=== PATIENT | female | born 1980 | race Caucasian/White ===

== ENCOUNTER 2020-06-19 15:34 | Outpatient (CLI) | payer OTHER, SELFPAY ==
--- NOTE | ~2020-06-19 | MM_ITS ---
EXAMINATION: MM screening cher BI w angelica HISTORY: Screening mammogram TECHNIQUE: Craniocaudal and mediolateral oblique 3-D tomosynthesis images were obtained and synthetic 2-D images were generated. CAD analysis was submitted and interpreted. COMPARISON: 04/17/2019 bilateral digital screening mammogram 03/29/2018 diagnostic left digital mammogram and limited left breast ultrasound 03/22/2018 bilateral digital screening mammogram BREAST PARENCHYMAL COMPOSITION: There are scattered areas of fibroglandular density. FINDINGS: There is no evidence of suspicious mass, calcification, or architectural distortion to sugg est malignancy in either breast. There has been no suspicious interval change. IMPRESSION: 1. No mammographic evidence of malignancy. 2. Recommend routine screening mammography in one year. BI-RADS Category 1: Negative Reviewed, dictated and finalized at location A. OL BUS OPERATOR
== END 2020-06-19 15:35 | disposition home or self-care (01) ==
LOC: ANHIMG 15:36
PROVIDERS: PCP Family Medicine Sports Medicine; Visit Provider Obstetrics & Gynecology
DX: Z12.31 Encounter for screening mammogram for malignant neoplasm of breast (principal)
CPT/HCPCS: 77063; 77067

== ENCOUNTER 2021-10-22 10:06 | Outpatient (CLI) | payer BC, SELFPAY ==
--- NOTE | ~2021-10-22 | MM_ITS ---
EXAMINATION: MM screening cher BI w angelica HISTORY: Screening mammogram TECHNIQUE: Craniocaudal and mediolateral oblique 3-D tomosynthesis images were obtained and synthetic 2-D images were generated. CAD analysis was submitted and interpreted. COMPARISON: 06/19/2020, 04/07/2019 bilateral screening mammogram examinations BREAST PARENCHYMAL COMPOSITION: There are scattered areas of fibroglandular density. FINDINGS: There is no evidence of suspicious mass, calcification, or architectural distortion to sugg est malignancy in either breast. There has been no suspicious interval change. IMPRESSION: 1. No mammographic evidence of malignancy. 2. Recommend routine screening mammography in one year. BI-RADS Category 1: Negative Reviewed, dictated and finalized at location A.
== END 2021-10-22 10:07 | disposition home or self-care (01) ==
PROVIDERS: PCP Family Medicine Sports Medicine; Visit Provider Obstetrics & Gynecology
DX: Z12.31 Encounter for screening mammogram for malignant neoplasm of breast (principal)
CPT/HCPCS: 77063; 77067

== ENCOUNTER 2023-03-31 08:12 | Outpatient (CLI) | payer BC, SELFPAY ==
--- NOTE | ~2023-03-31 | MM_ITS ---
EXAMINATION: MM screening [facility] BI w angelica HISTORY: Screening mammogram TECHNIQUE: Craniocaudal and mediolateral oblique 3-D tomosynthesis images were obtained and synthetic 2-D images were generated. CAD analysis was submitted and interpreted. COMPARISON: 10/22/2021, 06/19/2020, 04/07/2019 BREAST PARENCHYMAL COMPOSITION: There are scattered areas of fibroglandular density. FINDINGS: No suspicious mass, calcification, or architectural distortion are identified in either avi ast to suggest malignancy. There has been no suspicious interval change. IMPRESSION: 1. No mammographic evidence of malignancy. 2. Recommend routine screening mammography in one year. BI-RADS Category 1: Negative Reviewed, dictated and finalized at location A.
== END 2023-03-31 08:13 | disposition home or self-care (01) ==
LOC: CHSIMG 08:14
PROVIDERS: PCP Family Medicine; Visit Provider Obstetrics & Gynecology
DX: Z12.31 Encounter for screening mammogram for malignant neoplasm of breast (principal)
CPT/HCPCS: 77063; 77067

== ENCOUNTER 2023-04-06 12:33 | Outpatient (CLI) | payer BC, SELFPAY ==
--- NOTE | ~2023-04-06 | MR_ITS ---
MRI of the right knee Clinical history: Medial meniscal tear Technique: Coronal proton density and proton density-weighted images, sagittal proton-density and T2 fat-sat images, and axial proton-density fat-saturated images were acquired. Findings: Anterior and posterior cruciate ligaments are intact. Medial collateral ligament and the la teral collateral ligament complex are intact. Popliteus tendon is intact. No medial or lateral meniscal tear identified. There is moderate chondral thinning diffusely involving the medial femoral condyle. Lateral compartme nt articular cartilage is well preserved. 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 Femoral trochlear cartilage is intact. There are small patellofemoral compartment and media l and lateral joint line osteophytes. Extensor mechanism is intact. Minimal joint effusion present. Moderate Montano's cyst present. Impression: Moderate degenerative change of the medial and patellofemoral compartments, as detailed above. Mild d egenerative change of the lateral compartment. Moderate Montano's cyst. No ligamentous injury or meniscal tear seen. Reviewed, dictated and finalized at location M. ATION DEAN Impression: Moderate degenerative change of the medial and patellofemoral compartments, as detailed above. Mild degenerative change of the lateral compartment. Moderate Montano's cyst. No ligamentous injury or meniscal tear seen.
== END 2023-04-06 12:34 ==
PROVIDERS: PCP Family Medicine; Visit Provider Physician Assistant
DX: S83.221A Peripheral tear of medial meniscus, current injury, right knee, initial encounter (principal); X58.XXXA Exposure to other specified factors, initial encounter; M71.21 Synovial cyst of popliteal space [Baker], right knee
CPT/HCPCS: 73721

== ENCOUNTER 2024-04-01 10:11 | Outpatient (CLI) | payer BC, SELFPAY ==
--- NOTE | ~2024-04-01 | MM_ITS ---
EXAMINATION: MM screening [facility] BI w angelica HISTORY: Screening mammogram TECHNIQUE: Craniocaudal and mediolateral oblique 3-D tomosynthesis images were obtained and synthetic 2-D images were generated. CAD analysis was submitted and interpreted. COMPARISON: 03/31/2023, 10/22/2021, 06/19/2020, 04/07/2019 BREAST PARENCHYMAL COMPOSITION:Not Dense. There are scattered areas of fibroglandular density. FINDINGS: No suspicious mass, calcification, or architectural distortion are identified in either avi ast to suggest malignancy. There has been no suspicious interval change. IMPRESSION: No mammographic evidence of malignancy. Recommend routine screening mammography in one year. BI-RADS Category 1: Negative Reviewed, dictated and finalized at location .
== END 2024-04-01 10:12 | disposition home or self-care (01) ==
LOC: CHSIMG 10:12
PROVIDERS: PCP Family Medicine; Visit Provider Obstetrics & Gynecology
DX: Z12.31 Encounter for screening mammogram for malignant neoplasm of breast (principal)
CPT/HCPCS: 77063; 77067

== ENCOUNTER 2024-10-23 12:38 | Emergency (ER) | payer BC, SELFPAY ==
--- NOTE | ~2024-10-23 | US_ITS ---
RIGHT LOWER EXTREMITY VENOUS ULTRASOUND Ordering provider: Bill Karimi MD History: . Mottling of posterior right lower extremity . Comparison: None. FINDINGS: --COMMON FEMORAL: Patent and free of thrombus. Normal compressibility, phasic flow and augmentation. --PROXIMAL SUPERFICIAL FEMORAL: Patent and free of thrombus. Normal compressibility, phasic flow and augmentation. --DISTAL SUPERFICIAL FEMORAL: Patent and free of thrombus. Normal compressibility, phasic flow and au gmentation. --POPLITEAL: Patent and free of thrombus. Normal compressibility, phasic flow and augmentation. --POSTERIOR TIBIAL: Patent and free of thrombus. Normal compressibility, phasic flow and augmentation . IMPRESSION: Negative right lower extremity venous US. No deep vein thrombosis. Reviewed, dictated and finalized at location A.
[2024-10-23 12:38] VITALS: BP 150/90; PULSE 84; RESP 16; TEMP 36.4; O2SAT 99
--- OUTSIDE RECORDS SUMMARY | 2024-10-23 12:40 | XMS_ITS | Clinical Summary ---
Author Organization [facility] [address] Address [address] [place] [id number] Care Team Providers Care Paste Worker Name Role Phone Unknown, Notinfile Primary Care Provider Unavail able Allergies No known active allergies Medications levothyroxine (SYNTHROID) 25 mcg tablet Take 1 tablet (25 mcg total) by mouth every morning 2 Active ofloxacin (FLOXIN) 0.3 % otic solution Administer 5 drops into the left ear daily 5 mL 3 Active naproxen (NAPROSYN) 500 mg tablet Take 1 tablet (500 mg total) by mouth 2 (two) times a day with meals 60 tablet 3 Active phenazopyridine (PYRIDIUM) 95 mg tablet Take 1 tablet (95 mg total) by mouth 3 (three) times a day as needed for urinary pain Active Active Problems No known active problems Social History Tobacco Use Types Packs/Day Years Used Date Smoking Tobacco: Never Tobacco Cessation:Counseling Given: Not Answered Comments Unknown Sex and Gender Information Value Date Recorded Sex Assigned at Not on file 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 Gender Identity Not on file Sexual Orientation Not on file Obstetrics History Last Filed Vital Signs Vital Sign Reading Time Taken Comments Blood Pressure 122/84 03/20/2024 9:01 AM CDT Pulse 81 03/20/2024 9:01 AM CDT Temperature 37.1 C (98.8 F) 03/20/2024 9:01 AM CDT Respiratory Rate 16 03/20/2024 9:01 AM CDT Oxygen Saturation 96% 03/20/2024 9:01 AM CDT Inhaled Oxygen Concentration - - Weight 114.8 kg (253 lb) 03/20/2024 9:01 AM CDT Height 182.9 cm (6') 03/20/2024 9:01 AM CDT Body Mass Index 34.31 03/20/2024 9:01 AM CDT Plan of Treatment Health Maintenance Due Date Last Done Comments Breast Cancer Screening-Mammogram 1978 Cervical Cancer Screening 1978 Colon Cancer Screening-Colonoscopy 1978 Depression Screening 1978 Hepatitis C Screening 1978 DTaP/Tdap/Td Vaccine (1 - Tdap) 1989 Hepatitis B Screening 1996 Regular Well Visit/Exam 18-64 1996 Covid-19 Vaccine (3 - 2023-2 5 season) 2024 08/04/2020, 07/07/2020 Influenza Vaccine (Season Ended) 2025 HPV Vaccines Aged Out No longer eligi ble based on patient's age to complete this topic Pneumococcal vaccine <65 Aged Out No longer eligible based on patient's age to complete this topic [place] Care Teams Paste Worker Relationship Specialty Start Date End Date Unknown, Notinfile PCP - General 07/27/22
--- OUTSIDE RECORDS SUMMARY | 2024-10-23 12:40 | XMS_ITS | Clinical Summary ---
Author Organization [facility] Address [address] [facility] [place] [address] Care Team Providers Care Drier Tender Naphthalene Name Role Phone Kian Recinos MD Primary Care Provider [phone] Source Comments [facility],non-owned Affiliates and Associated Physician Practices is amultiple site organization consisting of ambulatory clinics and hospital sitesin [place], [place], [place] and [place]. This disclosure is being madepursuant to the Care Everywhere program and may not contain all information available regarding this patient. Last updated 18.[facility] Allergies No known active allergies Medications * Be aware that medications may not be up to date on this document. Alwaysverify current medications with the patient. Montelukast Sodium (SINGULAIR PO) Activ e Social History Tobacco Use Types Packs/Day Years Used Date Smoking Tobacco: Never Smokeless Tobacco: Never Comments No Sex and Gender Information Value Date Recorded Sex Assigned at Not on file Legal Sex Female 8:45 AM CDT Gender Identity Not on file Sexual Orientation Not on file Last Filed Vital Signs Vital Sign Reading Time Taken Comments Blood Pressure 118/74 01/28/2019 12:03 PM CDT Pulse 81 01/28/2019 12:03 PM CDT Temperature 37.2 C (99 F) 01/28/2019 12:03 PM CDT Respiratory Rate 18 01/28/2019 12:03 PM CDT Oxygen Saturation 97% 01/28/2019 12:03 PM CDT Inhaled Oxygen Concentration - - Weight 113.4 kg (250 lb) 01/28/2019 12:03 PM CDT Height 182.9 cm (6') 01/28/2019 12:03 PM CDT Body Mass Index 33.91 01/28/2019 12:03 PM CDT Plan of Treatment Health Maintenance Due Date Last Done Comments COLOGUARD (AGES 45-75) - COL ON CA SCREENING 1978 COLON MONITORING 1978 COLONOSCOPY - COLON CA SCREENING 1978 CT COLONOGRAPHY - COLON CA SCREENING 1978 Colorectal Cancer Screening 1978 FIT - COLON CA SCREENING 1978 FLEX SIG - COLON CA SCREENING 1978 LIPID TESTING 1978 MAMMOGRAM 1978 HIV SCREENING 1993 HEPATITIS C SCREENING 03/05/1996 DTAP/TDAP/TD VACCINES (1 - Tdap) 1997 HEPATITIS B VACCINE (1 of 3 - 19+ 3-dose series) 1997 SCREENING FOR DIABETES 05/10/2018 COVID-19 VACCINE ( - 2023-2 5 season) 2024 DEPRESSION SCREENING 06/01/2024 INFLUENZA VACCINE (Season Ended) 2025 ZOSTER VACCINE (1 of 2) 2028 HIB VACCINE Aged Out No longer eligi ble based on patient's age to complete this topic HPV VACCINE Aged Out No longer eligi ble based on patient's age to complete this topic MENINGOCOCCAL (Group B) VACC INE SHARED DECISION-MAKING Aged Out No longer eligibl e based on patient's age to complete this topic MENINGOCOCCAL GROUPS A/C/Y/W VACCINE Aged Out No longer eligible b ased on patient's age to complete this topic PNEUMOCOCCAL VACCINE Aged Out No long er eligible based on patient's age to complete this topic Insurance AETNA Care Teams Drier Tender Naphthalene Relationship Specialty Start Date End Date Kian Recinos MD [address] [place] [address] PCP - General Family Medicine 11/23/17
--- OUTSIDE RECORDS SUMMARY | 2024-10-23 12:40 | XMS_ITS | Patient Health Record ---
Author Organization [facility] Address [address] [facility] [address] [place] [address] Care Team Providers Care Pathology Manager Name Role Phone Walter Panchal MD Primary Care Provider Unavailab Mitchell Zimmer Unavailable [phone] Reason For Referral No Information Problems Problem Type SNOMED Code ICD Code Onset Dates Problem Status W/U Status Risk Notes Problem [id number] Diverticulosis o f large intestine without perforation or abscess without bleeding (K57.30) Active confirmed Plan Of Treatment No Information Insurance Providers Payer Name Payer Address Payer Phone Subscriber Number Group Number Insured Name Patient Relationship to Insured Coverage Start Date Coverage End Date Aetna E2 [address] [address] [place] [address] [id number] Kendal Dyer Self - patient is the insured
--- OUTSIDE RECORDS SUMMARY | 2024-10-23 12:40 | XMS_ITS | Referral Summary ---
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
--- OUTSIDE RECORDS SUMMARY | 2024-10-23 13:46 | XMS_ITS | Referral Summary ---
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
--- OUTSIDE RECORDS SUMMARY | 2024-10-23 13:46 | XMS_ITS | Clinical Summary ---
Author Organization [facility] [employer] Address [address] [facility] [place] [address] Care Team Providers Care Sample Prep Technician Name Role Phone Kian Recinos MD Primary Care Provider [phone] Source Comments [facility] [employer],non-owned Affiliates and Associated Physician Practices is amultiple site organization consisting of ambulatory clinics and hospital sitesin [place], [place], [place] and [place]. This disclosure is being madepursuant to the Care Everywhere program and may not contain all information available regarding this patient. Last updated 18.[facility] [employer] Allergies No known active allergies Medications * [...] complete this topic Insurance AETNA Care Teams Sample Prep Technician Relationship Specialty Start Date End Date Kian Recinos MD [address] [place] [address] PCP - General Family Medicine 11/23/17
--- OUTSIDE RECORDS SUMMARY | 2024-10-23 13:46 | XMS_ITS | Clinical Summary ---
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
--- NOTE | 2024-10-23 15:02 | ED_ITS ---
HPI - General Adult General Chief complaint: Extremity Problem,Nontraumatic Stated complaint: RLE swelling and pain Time Seen by Provider: 10/23/24 13:39 History of Present Illness HPI narrative: 44-year-old female presents to the emergency department for evaluation for some mottling on her posterior right leg. Family 1st noticed this yesterday. Patient denies any chest pain or shortness of breath. Patient denies any lower extremity pain. Patient does have a slightly larger calf circumference on the right lower extremity. Patient has been taking meloxicam for a chronic injury of her left foot. Related Data Home Medications ?Medication ?Instructions ?Recorded ?Confirmed ?Last Taken ?Type No Home Medications 07/12/24 07/12/24 Unknown History Allergies Allergy/AdvReac Type Severity Reaction Status Date / Time No Known Allergies Allergy Verified 10/23/24 12:45 Review of Systems Review of Systems: All systems reviewed & are unremarkable except as noted in HPI and below PMFSH Past Medical History Medical History Hyperthyroidism Screening mammogram, encounter for Asthma Anxiety Surgical History Surgical History History of colposcopy (03/27/01) colpo bx- chronic cervicitis History of hysteroscopy (07/17/01) HSCOPE, D&C, DX LAP, CHROMOPERTUBATION History of hysteroscopy (10/02/05) suction D&C missed AB Delivery by section (10/19/08) rpt c/s Delivery by section (08/16/06) primary c/s Family History Family History Mother Diabetes mellitus Hypertension Father Hypertension Carcinoma of colon Grandparent H/O ovarian cancer great grandmother Social History Social History (Updated 07/12/24 @ 16:03 by ANNE Parkinson) Smoking status: Never smoker Second hand tobacco smoke exposure: No Alcohol intake: current Drinks per week: 4 Substance use: never Substance use type: does not use Do You Feel Safe in your Home?: Yes Lack of Transportation: No Lack of Food: Never True Current Housing: Decline to Answer Concerned About Future Housing: Decline to Answer Difficulty Paying Gas/Electric Bills: Decline to Answer Difficulty Paying for Meds: Decline to Answer Currently Unemployed: Decline to Answer Education: Decline to Answer Difficulty w/ Childcare or Family Care: Decline to Answer Living arrangements: other Additional living arrangements comments: Occupation/Education: occupation Additional occupation/education comments: Teacher Gender identity (if verbalized by the patient): Female Sexual Orientation (if Verbalized by the Patient): Straight or Heterosexual Exam Narrative: APPEARANCE: Well appearing, no pain, no distress, well-nourished. HEAD: normocephalic, atraumatic. EYES: PERRLA/EOMI, conjunctivae clear. NOSE: Normal no drainage EARS:TMS clear with good light reflex. THROAT: Pharynx clear, no exudate. NECK: Supple. No adenopathy, no masses. RESPIRATORY: Airway patent, respirations nonlabored. Clear to auscultation bilaterally, no rales, rhonchi, wheezing. CARDIOVASCULAR: Regular rate and rhythm without murmurs rubs or gallops. ABDOMINAL: Soft, nontender, nondistended, normal bowel sounds MUSCULOSKELETAL: Right calf is mildly larger than the left calf with no tenderness to palpation, no edema NEURO: Alert. Cranial nerves II through XII intact. Grossly intact SKIN: Mild mottling of the posterior right calf Course Vital Signs Vital signs: Vital Signs Temperature 97.5 F L 10/23/24 12:38 Pulse Rate 84 10/23/24 12:38 Respiratory Rate 16 10/23/24 12:38 Blood Pressure 150/90 H 10/23/24 12:38 Pulse Oximetry 99 10/23/24 12:38 Temperature 97.5 F L 10/23/24 12:38 Pulse Rate 84 10/23/24 12:38 Respiratory Rate 16 10/23/24 12:38 Blood Pressure 150/90 H 10/23/24 12:38 Pulse Oximetry 99 10/23/24 12:38 Medical Decision Making MDM Narrative Medical decision making narrative: 44-year-old female present to the emergency department for evaluation for mild mottling of the skin on her right calf. Patient denies any pain or complaints. Ultrasound was negative for DVT. Differential Diagnosis Differential Diagnosis: DVT, cellulitis, hematoma, muscle strain Vital Signs Vital Signs: Vital Signs Temperature 97.5 F L 10/23/24 12:38 Pulse Rate 84 10/23/24 12:38 Respiratory Rate 16 10/23/24 12:38 Blood Pressure 150/90 H 10/23/24 12:38 Pulse Oximetry 99 10/23/24 12:38 Temperature 97.5 F L 10/23/24 12:38 Pulse Rate 84 10/23/24 12:38 Respiratory Rate 16 10/23/24 12:38 Blood Pressure 150/90 H 10/23/24 12:38 Pulse Oximetry 99 10/23/24 12:38 Discharge Plan Discharge Clinical Impression: Other skin changes Patient Disposition: Home Condition: Stable Instructions: Antibiotic Form Additional Instructions: Your ultrasound was negative for deep vein thrombosis. Have close follow-up with your primary care physician. Patient Language: German Prescriptions: No Action No Home Medications Follow-up/Referrals: Grisel,Kian Castro MD [Primary Care Provider] -
== END 2024-10-23 15:44 | disposition home or self-care (01) ==
PROVIDERS: Emergency Provider Emergency Medicine; PCP Family Medicine
DX: R23.9 Unspecified skin changes (principal); J45.909 Unspecified asthma, uncomplicated; F41.9 Anxiety disorder, unspecified; E05.90 Thyrotoxicosis, unspecified without thyrotoxic crisis or storm
CPT/HCPCS: 93971; 99284

== ENCOUNTER 2025-04-03 12:42 | Outpatient (CLI) | payer BC, SELFPAY ==
--- NOTE | ~2025-04-03 | MM_ITS ---
EXAMINATION: MM screening cher BI w angelica HISTORY: Screening TECHNIQUE: Craniocaudal and mediolateral oblique 3-D tomosynthesis images were obtained and synthetic 2-D images were generated. CAD analysis was submitted and interpreted. COMPARISON: Comparison to multiple prior studies sequentially, with oldest reviewed study dated , 04/07/2019 BREAST PARENCHYMAL COMPOSITION: There are scattered areas of fibroglandular density. FINDINGS: There is no evidence of suspicious mass, calcification, or architectural distortion to suggest malignancy in either breast. IMPRESSION: 1. No mammographic evidence of malignancy. 2. Recommend routine screening mammography in one year. BI-RADS Category 1: Negative Reviewed, dictated and finalized at location B. SCAN TECH
--- OUTSIDE RECORDS SUMMARY | 2025-04-03 13:51 | XMS_ITS | Patient Health Record ---
Author Organization [facility] Address [address] [facility] [address] [place] [address] Care Team Providers Care Paid Search Specialist Name Role Phone Walter Panchal MD Primary Care Provider Unavailab Mitchell Zimmer Unavailable [phone] Reason For Referral No Information Problems Problem Type SNOMED Code ICD Code Onset Dates Problem Status W/U Status Risk Notes Problem Diverticular disease of colon (383565295) Diverticulosis of large intestine without perforation or abscess without bleeding (K57.30) Active confirmed Plan Of Treatment No Information Insurance Providers Payer Name Payer Address Payer Phone Subscriber Number Group Number Insured Name Patient Relationship to Insured Coverage Start Date Coverage End Date Aetna E2 [address] [address] [facility] [place] [address] [id number] Kendal Dyer Self - patient is the insured
--- OUTSIDE RECORDS SUMMARY | 2025-04-03 13:51 | XMS_ITS | Clinical Summary ---
Author Organization [facility] Address [address] [facility] [place] [address] Care Team Providers Care Physician Interventional Cardiologist Name Role Phone Kian Recinos MD Primary Care Provider [phone] [facility],non-owned Affiliates and Associated Physician Practices is amultiple site organization consisting of ambulatory clinics and hospital sitesin [place], [place], [place] and [place]. This disclosure is being madepursuant to the Care Everywhere program and may not contain all information available regarding this patient. Last updated 18.[facility] Allergies No known active allergies Medications * [...] 3-dose series) 1997 SCREENING FOR DIABETES 05/10/2018 DEPRESSION SCREENING 06/01/2024 COVID-19 VACCINE (1 - 2023-2 5 season) 2025 INFLUENZA VACCINE (#1) 2025 ZOSTER VACCINE (1 of 2) 2028 [...] complete this topic Insurance A[employer] Care Teams Physician Interventional Cardiologist Relationship Specialty Start Date End Date Kian Recinos MD [address] [place] [address] PCP - General Family Medicine 11/23/17
--- OUTSIDE RECORDS SUMMARY | 2025-04-03 13:51 | XMS_ITS | Clinical Summary ---
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
== END 2025-04-03 12:43 | disposition home or self-care (01) ==
LOC: CHSIMG 12:43
PROVIDERS: PCP Family Medicine; Visit Provider Obstetrics & Gynecology
DX: Z12.31 Encounter for screening mammogram for malignant neoplasm of breast (principal)
CPT/HCPCS: 77063; 77067